=== PATIENT | male | born 2000 | race Caucasian/White ===

== ENCOUNTER → 2023-03-31 | Day surgery (SDC) | payer OTHER ==
[~2023-03-31] VITALS: Ht 198.1 cm; Wt 100.7 kg
[~2023-03-31] MED LIST: ACETAMINOPHEN 1000MG 100ML IV BAG As Ordered ONE; HYDROMORPHONE HCL 0.5 MG/ 0.5 ML SYRINGE IV PRN; KETOROLAC 60MG 2ML VIAL As Ordered ONE; LIDOCAINE 2% 100MG/5ML SDV (FOR ANES.) As Ordered ONE; LR 1,000 ML IV SCH; MIDAZOLAM INJ 2MG/2ML VIAL As Ordered ONE; ONDANSETRON 4MG 2ML VIAL As Ordered ONE; ONDANSETRON 4MG 2ML VIAL IV PRN; TRANEXAMIC ACID 100 MG/ML 10ML VIAL As Ordered ONE; TRANEXAMIC ACID 100 MG/ML 10ML VIAL IV ONE; VANCOMYCIN 1000MG/20ML VIAL As Ordered ONE; ceFAZolin SOD 2 GM in IV 1 EA IV ONE; fentaNYL 100 MCG/2 ML INJECTION IV PRN; fentaNYL 250 MCG/5 ML INJECTION As Ordered ONE; oxyCODONE 5MG TAB PO PRN; propofoL 200 MG/20 ML VIAL As Ordered ONE
[2023-03-31 16:55] VITALS: BP 138/83; TEMP 98; O2SAT 98
== END | disposition home or self-care (01) ==
LOC: M SDC 10:29
PROVIDERS: ATTEND Orthopaedic Surgery
DX: T79.A21A Traumatic compartment syndrome of right lower extremity, initial encounter (principal); Y93.02 Activity, running; Y92.9 Unspecified place or not applicable
CPT/HCPCS: 27600; C9290; J0131; J0665; J1100; J1885; J2250; J2405; J3010